=== PATIENT | female | born 1965 | race Caucasian/White ===

== ENCOUNTER 2019-04-28 13:02 | Outpatient (CLI) | payer OTHER ==
[~2019-04-28 13:02] MED LIST: Iopamidol 370 76% 100 ML VIAL ONE
--- NOTE | 2019-04-28 14:05 | CT ---
CT Brain W WO Con: 04/28/2019 12:00 AM CLINICAL HISTORY: Dizziness. COMPARISON: None. FINDINGS: Hemorrhage: None. Ventricular system: Normal in size and morphology for the patient's age. Cerebral parenchyma: There is a round hypodensity adjacent the left, with diameter of 1.9 cm Midline shift: None. Mass: Cystic mass of left frontal lobe, as above Calvarium: Normal. Visualized Paranasal sinuses: Clear. Postcontrast imaging: No pathologic intra-axial enhancement IMPRESSION: Cystic mass of left frontal lobe. Recommend pre and postcontrast brain MRI for more definitive evalua tion.
== END 2019-04-28 13:03 | disposition home or self-care (01) ==
LOC: SCSCT 13:02
PROVIDERS: ATTEND Physician Assistant Medical
DX: H81.12 Benign paroxysmal vertigo, left ear (principal); G93.0 Cerebral cysts
CPT/HCPCS: 70470; Q9967

== ENCOUNTER 2019-05-14 08:35 | Outpatient (CLI) | payer OTHER ==
[2019-05-14] MEDS ORDERED: Gadobenate Dimeglumine 529 MG/1 ML (20ML VIAL) ONE (09:00)
--- NOTE | 2019-05-14 10:13 | MRI ---
MRI BRAIN WITH AND WITHOUT CONTRAST: DATE: 05/14/2019 HISTORY: 53-year-old female with cystic lesion in brain found on CT. TECHNIQUE: Multiplanar, multisequence MRI of the brain obtained pre and post IV injection of gadolinium based co ntrast agent. FINDINGS: In the left frontal lobe, there is a 2 x 2 x 1.8 cm simple-appearing parenchymal cyst mildly indentin g the lateral margin of the anterior body of the left lateral ventricle. There is a thin lining of gliosis surrounding this. This cyst follows CSF signal intensity on all pulse sequences. There is no solid nodular component. The ventricles are otherwise normal in size and configuration. There is no midline shift or any other evidence of mass effect. There is no extra-axial fluid collection. There i s no other intra-axial signal abnormality, abnormal enhancement, mass, recent hemorrhage, or restricted diffusion. IMPRESSION: 1. 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 2. Otherwise normal.
== END 2019-05-14 08:36 | disposition home or self-care (01) ==
LOC: SCSMRI 08:35
PROVIDERS: ATTEND Family Medicine
DX: G93.9 Disorder of brain, unspecified (principal)
CPT/HCPCS: 70553; A9577

== ENCOUNTER 2025-05-20 08:51 | Outpatient (CLI) | payer BC, SELFPAY ==
[2025-05-20 11:52] LABS: #Basophils 0.03 10x3/uL (0.0-0.2); #Eosinophils 0.11 10x3/uL (0.0-0.7); #Monocytes 0.55 10x3/uL (0.11-0.59); #Neutrophils 3.52 10x3/uL (1.40-6.50); %Basophils 0.5 % (0.0-1.0); %Eosinophils 1.8 % (0.0-10.0); %Lymphocytes 31.8 % (21.0-51.0); %Monocytes 8.9 % (0.0-10.0); %Neutrophils 56.7 % (42.0-75.0); Hematocrit 39.8 % (36.0-47.0); Hemoglobin 12.8 g/dL (12.0-16.0); Mean Corpuscular Hemoglobin 28.8 pg (27.0-31.0); Mean Corpuscular Volume 89.6 fL (78.0-98.0); Platelet Count 358 10x3/uL (130-400); Red Blood Cell (RBC) Count 4.44 mill/uL (4.20-5.40); White Blood Cell (WBC) Count 6.20 10x3/uL (4.8-10.8)
[2025-05-20 11:59] LABS: Bacteria/HPF None Seen HPF (None Seen); Glucose, Urine (Dipstick) Normal (Negative); Leukocyte Negative Leu/uL (Negative); Protein, Urine (Dipstick) Negative (Neg-Trace); Specific Gravity, Urine 1.008 (1.002-1.036); WBC/HPF 0-3 HPF (0-3)
[2025-05-20 12:07] LABS: INR-International Normal Ratio 1.0; Prothrombin Time 13.3 sec (12.0-14.7)
[2025-05-20 12:47] LABS: Anion Gap 12 mmol/L (10-20); BUN (Urea Nitrogen) 13 mg/dL (9.8-20.1); Calc. Creatinine Clearance 0 mL/min (70-130); Calcium 9.5 mg/dL (7.8-10.44); Carbon Dioxide 24 mmol/L (22-29); Chloride 107 mmol/L (98-107); Glucose 96 mg/dL (70-105); Potassium 4.0 mmol/L (3.5-5.1); Sodium 139 mmol/L (136-145)
== END 2025-05-20 08:52 | disposition home or self-care (01) ==
LOC: LABBT 08:51
PROVIDERS: ATTEND Orthopaedic Surgery
DX: Z01.818 Encounter for other preprocedural examination (principal); M17.11 Unilateral primary osteoarthritis, right knee
CPT/HCPCS: 71046; 80048; 81001; 85025; 85610; 87081; 93005; 93010

== ENCOUNTER 2025-05-27 08:19 | Observation (INO) | payer BC ==
[2025-05-20 09:19] VITALS: BMI 32.1
[2025-05-27] MEDS ORDERED: Ropivacaine 0.5% HCl/PF (150 MG/30 ML VIAL) ONE (08:26)
[2025-05-27] MEDS ORDERED: Vancomycin HCl 1.5 GM VIAL ONE ×2 (08:40→08:43)
[2025-05-27] MEDS ORDERED: CEFAZOLIN 2 GM VIAL ONE (08:40)
[2025-05-27] MEDS ORDERED: Tranexamic Acid 1,000 MG/10 ML VIAL ONE ×2 (08:40→12:22)
[2025-05-27] MEDS ORDERED: HYDROcodone/Acetaminophen 10/325 mg Tablet PO PRN (09:45)
[2025-05-27] MEDS ORDERED: Ropivacaine 0.2% 550 ML 550 ML NERVE BLCK SCH (09:45)
[2025-05-27] MEDS ORDERED: Ondansetron PF 4 MG/2 ML Vial IVP PRN ×2 (09:45→11:28)
[2025-05-27] MEDS ORDERED: fentaNYL PF 100 MCG/2 ML SYRINGE ONE (10:07)
[2025-05-27] MEDS ORDERED: PROPOFOL 20 ML ONE (10:11)
[2025-05-27] MEDS ORDERED: Ketorolac Tromethamine 30 MG (1 mL) VIAL ONE (11:08)
[2025-05-27] MEDS ORDERED: PHENYLEPHRINE-NS 100 MCG/ML 10 ML SYRINGE ONE (11:08)
[2025-05-27] MEDS ORDERED: Ondansetron PF 4 MG/2 ML Vial ONE (11:08)
[2025-05-27] MEDS ORDERED: Acetaminophen 325 MG TAB PO PRN (11:28)
[2025-05-27] MEDS ORDERED: diphenhydrAMINE 25 MG CAP PO PRN (11:28)
[2025-05-27] MEDS ORDERED: Hydrocortisone Sod Succ/PF 100 mg/2 ml Vial ONE (11:37)
[2025-05-27] MEDS ORDERED: SUVOREXANT 10 MG PO SCH (12:00)
[2025-05-27] MEDS: Gabapentin 100 MG CAP PO SCH (13:29)
[2025-05-27] MEDS: Ketorolac Tromethamine 30 MG (1 mL) VIAL IVP SCH (13:29)
[2025-05-27] MEDS: metFORMIN 500 MG TAB PO SCH (17:35)
[2025-05-27] MEDS: Gabapentin 400 MG CAP PO SCH (20:48)
[2025-05-27] MEDS: Aspirin 81 mg Enteric Coated Tablet PO SCH (20:49)
[2025-05-27] MEDS: Ferrous Gluconate 324 MG TAB PO SCH (20:53)
[2025-05-27] MEDS: Senokot S 8.6-50 MG TAB PO SCH (20:53)
[2025-05-28 06:01] LABS: Hematocrit 31.5 % (36.0-47.0); Hemoglobin 10.2 g/dL (12.0-16.0); Mean Corpuscular Hemoglobin 29.1 pg (27.0-31.0); Mean Corpuscular Volume 90.0 fL (78.0-98.0); Platelet Count 262 10x3/uL (130-400); Red Blood Cell (RBC) Count 3.50 mill/uL (4.20-5.40); White Blood Cell (WBC) Count 17.00 10x3/uL (4.8-10.8)
[2025-05-28] MEDS: Meloxicam 15 MG TAB PO SCH (09:10)
[2025-05-28] MEDS: Cholecalciferol 1,000 UNITS (25 MCG) TAB PO SCH (09:11)
[2025-05-28] MEDS: Multivitamin W/ Minerals 1 TAB PO SCH ×2 (09:11→09:17)
[2025-05-28 11:59] VITALS: BP 124/76; TEMP 97.8
[2025-05-28] MEDS: HYDROcodone/Acetaminophen 10/325 mg Tablet PO PRN (14:58)
== END 2025-05-28 15:13 | disposition home or self-care (01) ==
LOC: SDC 08:19 → INTOOBSV 11:33 → SURG A 11:33
PROVIDERS: ADMIT Orthopaedic Surgery; ATTEND Orthopaedic Surgery
PROC: 0SRC0JZ Replacement of Right Knee Joint with Synthetic Substitute, Open Approach (ICD-10-PCS; principal; 2025-05-27)
PROC: 3E0T3BZ Introduction of Anesthetic Agent into Peripheral Nerves and Plexi, Percutaneous Approach (ICD-10-PCS; 2025-05-27)
DX: M17.11 Unilateral primary osteoarthritis, right knee (principal); E03.9 Hypothyroidism, unspecified; Z87.59 Personal history of other complications of pregnancy, childbirth and the puerperium; Z90.89 Acquired absence of other organs; Z79.890 Hormone replacement therapy
CPT/HCPCS: 0055T; 27447; 64448; 36415; 85027; A4306; C1713; C1776; C1889; J0665; J1100; J1720; J1885; J2250; J2405; J2704; J2795; J3010; J7030